=== PATIENT | female | born 1955 | race Caucasian/White ===

== ENCOUNTER 2017-08-18 11:32 | Emergency (ER) | payer BC ==
--- NOTE | 2017-08-18 12:22 | RAD ---
HISTORY: Chest pain COMPARISONS: March 13, 2006 VIEWS: 1: frontal portable view of the chest at 11:55 AM FINDINGS: LINES AND TUBES: None. CARDIOMEDIASTINAL SILHOUETTE: The cardiomediastinal silhouette is normal for portable technique. PLEURA: The costophrenic angles are sharp. No pleural abnormalities are noted. LUNG PARENCHYMA: There is hyperinflation. There is linear opacification of the left lung base ABDOMEN: The upper abdomen is clear. There is no subphrenic gas. BONES AND SOFT TISSUES: No bone or soft tissue abnormalities are noted. IMPRESSION: COPD. LINEAR ATELECTASIS OF THE LEFT LUNG BASE
[2017-08-18 13:32] LABS: Albumin 4.1 g/dL (3.2-5.2); BUN/Creatinine Ratio 12.5 (8-20); EGFR African American 84.3 (>60); EGFR Non-African American 65.5 (>60); Globulin 3.6 g/dL (2-4); Potassium 4.2 mmol/L (3.5-5.0); Total Bilirubin 0.4 mg/dL (0.2-1.0); Total Protein 7.7 g/dL (6.4-8.9)
[2017-08-18 13:34] LABS: Urine Bacteria Absent (Absent); Urine Bilirubin Negative (Negative); Urine Glucose Negative (Negative); Urine Nitrite Negative (Negative)
[2017-08-18 13:36] LABS: Hematocrit 49 % (35-47); Hemoglobin 16.5 g/dl (12.0-16.0); Mean Corpuscular HGB Conc 34 g/dl (31-36); Mean Corpuscular Hemoglobin 29 pg (27-31); Mean Corpuscular Volume 86 fL (80-97); Mean Platelet Volume 9 um3 (7.4-10.4); Red Blood Count 5.61 10^6/ul (4.0-5.4); Red Cell Distribution Width 14 % (10.5-15)
[2017-08-18] MEDS ORDERED: Albuterol/Ipratropium NEB.SOL* Albuterol 2.5 MG/Ipratropium 0.5 MG 3 ML INH ONE ×2 (13:48→14:48)
[2017-08-18] MEDS ORDERED: methylPREDNISolone 125 MG* 2 ML VIAL IV ONE (13:48)
[2017-08-18] MEDS ORDERED: Iohexol 350* (CONTRAST) 500 ML MDV IV ONE (14:16)
--- NOTE | 2017-08-18 14:36 | RAD ---
HISTORY: Shortness of breath, hypoxemia COMPARISONS: None TECHNIQUE: Multiple contiguous axial CT scans of the chest were obtained after the administration of nonionic intravenous contrast, timed to the pulmonary arterial phase of contrast enhancement.. Coronal and sagittal multiplanar reformations are also submitted for review. FINDINGS: NECK AND THYROID: The lower neck and thyroid are unremarkable. CHEST WALL: There is no lower cervical, axillary, or supraclavicular lymphadenopathy by size criteria. HEART AND PERICARDIUM: The heart is unremarkable. AORTA AND PULMONARY VASCULATURE: There is no pulmonary arterial filling defect to suggest pulmonary embolism. There is no linear filling defect within the aorta to suggest aortic dissection. MEDIASTINUM: There is an AP window lymph node measuring 1.3 cm in short axis. There is right hilar lymph node measuring 1 cm in short axis. JESUS MANUEL: There is no hilar lymphadenopathy by size criteria. AIRWAY AND ESOPHAGUS: There is peribronchovascular thickening diffusely LUNG PARENCHYMA: There is centrilobular emphysematous change. There is a 0.6 cm nodule of the superior segment of the right lower lobe on axial image 28 PLEURA: No pleural abnormalities are noted. UPPER ABDOMEN: The upper abdomen is unremarkable. BONES AND SOFT TISSUES: Degenerative changes are noted OTHER: None. IMPRESSION: 1. NO PULMONARY ARTERIAL FILLING DEFECT TO SUGGEST PULMONARY EMBOLISM. 2. EMPHYSEMA. 3. PERIBRONCHOVASCULAR THICKENING SUGGESTIVE OF BRONCHITIS OF UNCERTAIN ACUITY 4. MILDLY ENLARGED ADJACENT LYMPH NODES WITH BORDERLINE ENLARGED HILAR LYMPH NODES. 5. 0.6 CM NODULE OF THE RIGHT LOWER LOBE. THE RECOMMENDATIONS FOR FOLLOWUP AND MANAGEMENT OF AN INCIDENTALLY DETECTED PULMONARY NODULE LESS THAN 6 MM IN SIZE, IN A PATIENT WITHOUT A HISTORY OF MALIGNANCY, INCLUDE NO FOLLOWUP FOR A LOW-RISK PATIENT OR OPTIONAL FOLLOWUP CT IN 12 MONTHS FOR A HIGH RISK PATIENT. NOTES: SIZE = AVERAGE LENGTH AND WIDTH; HIGH RISK IS DEFINED A HISTORY OF SMOKING OR OTHER KNOW RISK FACTORS FOR LUNG CANCER; LOW RISK IS DEFINED MINIMAL OR ABSENT HISTORY OF SMOKING OR OTHER KNOWN RISK FACTORS. Reji Hawkins, GELY Cooper, ZOEY Alanis, et al (2017) "Guidelines for Management of Incidental Pulmonary Nodules Detected on CT Images: From the Fleischner Society 2017." Radiology; 284(1): 228-243. doi:10.1148/radiol.[id number] 1.
[2017-08-18] MEDS ORDERED: Nicotine Inhaler* 10 MG AMP INH ONE (16:36)
[2017-08-18 16:43] VITALS: BP 145/64
--- NOTE | 2017-08-23 13:12 | ED ---
Jenae Nino Edward, scribed for Juan Mckee MD on 08/18/17 at 1242 . Respiratory - HPI Summary HPI Summary: 62 y/o female presents to the ED c/o cough and SOB starting one week ago described as COPD exacerbation, worsening throughout the week. Pt reports more chest heaviness, coughing, fatigue and weakness than usual COPD exacerbation. Pt also c/o CP described as a constant pressure that is located under the breasts bilaterally, rated 6-7/10. It is alleviated when she lays down. Pt was dx PNA at [facility] six days ago; pt was put on an albuterol inhaler that alleviated symptoms slightly. The cough is a productive, clear cough. Associated sx: mild edema in the hands, back pain below the shoulder blades. Pt denies pain/swelling in the legs. Smoker. PMHx COPD. - History of Current Complaint Chief Complaint: EDUpperRespComplaint Stated Complaint: DIFF BREATHING/HEART RACING Hx Obtained From: Patient Onset/Duration: Lasting Days Pain Intensity: 4 Character: Cough (Productive), Dyspnea at Rest Sputum Color: Clear Alleviating Factor(s): Other - Recumbent position Associated Signs and Symptoms: SOB, Chest Pain, Edema - Hands - Allergy/Home Medications Allergies/Adverse Reactions: Allergies Allergy/AdvReac Type Severity Reaction Status Date / Time No Known Allergies Allergy Verified 08/18/17 11:36 PMH/Surg Hx/FS Hx/Imm Hx Previously Healthy: No Endocrine/Hematology History: Denies: Hx Diabetes Respiratory History: Reports: Hx Chronic Obstructive Pulmonary Disease (COPD), Other Respiratory Problems/Disorders - Cancer History Hx Chemotherapy: No Hx Radiation Therapy: No Infectious Disease History: No Infectious Disease History: Denies: Traveled Outside the [place] in Last 30 Days - Family History Known Family History: Positive: Cardiac Disease - Father: CAD, Diabetes - Father - Social History Alcohol Use: Rare Hx Substance Use: No Substance Use Type: Reports: None Hx Tobacco Use: Yes Smoking Status (MU): Heavy Every Day Tobacco Smoker Review of Systems Positive: Fatigue. Negative: Fever, Chills Negative: Erythema Negative: Sore Throat Positive: Chest Pain Positive: Shortness Of Breath, Cough Negative: Abdominal Pain, Vomiting, Nausea Negative: dysuria, hematuria Positive: Myalgia - Back pain , Edema - Hands. No edema in the legs Negative: Rash Neurological: Other - No dizziness Positive: Weakness All Other Systems Reviewed And Are Negative: Yes Physical Exam - Summary Physical Exam Summary: Constitutional: Well-developed, Well-nourished, Alert. (-) Distressed Skin: Warm, Dry HENT: Normocephalic; Atraumatic Eyes: Conjunctiva normal Neck: Musculoskeletal ROM normal neck. (-) JVD, (-) Stridor, (-) Tracheal deviation Cardio: Rhythm regular, rate normal, Heart sounds normal; Intact distal pulses; The pedal pulses are 2+ and symmetric. Radial pulses are 2+ and symmetric. (-) Murmur Pulmonary/Chest wall: Effort normal. (-) Respiratory distress, (+) Expiratory wheezes, (-) Rales. Hoarse voice Abd: Soft, (-) Tenderness, (-) Distension, (-) Guarding, (-) Rebound Musculoskeletal: (-) Edema Lymph: (-) Cervical adenopathy Neuro: Alert, Oriented x3 Psych: Mood and affect Normal Triage Information Reviewed: Yes Vital Signs On Initial Exam: Initial Vitals Temp Pulse Resp BP Pulse Ox 98.0 F 90 16 160/80 97 08/18/17 11:32 08/18/17 11:32 08/18/17 11:32 08/18/17 11:32 08/18/17 11:32 Vital Signs Reviewed: Yes - Gayle Coma Scale Coma Scale Total: 15 Diagnostics - Vital Signs Vital Signs Temp Pulse Resp BP Pulse Ox 08/18/17 12:14 86 92 08/18/17 12:12 156/73 08/18/17 12:09 94 08/18/17 11:32 98.0 F 90 16 160/80 97 - Laboratory Result Diagrams: 08/18/17 13:07 08/18/17 13:07 Lab Statement: Any lab studies that have been ordered have been reviewed, and results considered in the medical decision making process. - Radiology CXR Xray Interpretation: Positive (See Comments) - COPD. LINEAR ATELECTASIS OF THE LEFT LUNG BASE Radiology Interpretation Completed By: Radiologist - CT CHEST/THORAX CTA CT Interpretation: Positive (See Comments) - 1. NO PULMONARY ARTERIAL FILLING DEFECT TO SUGGEST PULMONARY EMBOLISM. 2. EMPHYSEMA. 3. PERIBRONCHOVASCULAR THICKENING SUGGESTIVE OF BRONCHITIS OF UNCERTAIN ACUITY 4. MILDLY ENLARGED ADJACENT LYMPH NODES WITH BORDERLINE ENLARGED HILAR LYMPH NODES. 5. 0.6 CM NODULE OF THE RIGHT LOWER LOBE. THE RECOMMENDATIONS FOR FOLLOWUP AND MANAGEMENT OF AN INCIDENTALLY DETECTED PULMONARY NODULE LESS THAN 6 MM IN SIZE, IN A PATIENT WITHOUT A HISTORY OF MALIGNANCY, INCLUDE NO FOLLOWUP FOR A LOW-RISK PATIENT OR OPTIONAL FOLLOWUP CT IN 12 MONTHS FOR A HIGH RISK PATIENT. CT Interpretation Completed By: Radiologist - EKG 1 EKG Interpretation: 13:42 - SR @ 81 BPM. NO STEMI. NO ECTOPY. Re-Evaluation - Re-Evaluation 1 Re-Evaluation Time: 15:15 Change: Improved - No SOB with ambulation. O2 sat between 88-92%. Pt felt much better after nebulizer and steroids. Disposition - Course Assessment/Plan: 62 y/o female presents to the ED c/o cough and SOB starting one week ago described as COPD exacerbation, worsening throughout the week. Pt reports more chest heaviness, coughing, fatigue and weakness than usual COPD exacerbation. Pt also c/o CP described as a constant pressure that is located under the breasts bilaterally, rated 6-7/10. It is alleviated when she lays down. Pt was dx PNA at [facility] six days ago; pt was put on an albuterol inhaler that alleviated symptoms slightly. The cough is a productive, clear cough. Associated sx: mild edema in the hands, back pain below the shoulder blades. Pt denies pain/swelling in the legs. Smoker. PMHx COPD. CXR SHOWS COPD. LINEAR ATELECTASIS OF THE LEFT LUNG BASE. CHEST/THORAX CTA SHOWS 1. NO PULMONARY ARTERIAL FILLING DEFECT TO SUGGEST PULMONARY EMBOLISM. 2. EMPHYSEMA. 3. PERIBRONCHOVASCULAR THICKENING SUGGESTIVE OF BRONCHITIS OF UNCERTAIN ACUITY 4. MILDLY ENLARGED ADJACENT LYMPH NODES WITH BORDERLINE ENLARGED HILAR LYMPH NODES. 5. 0.6 CM NODULE OF THE RIGHT LOWER LOBE. THE RECOMMENDATIONS FOR FOLLOWUP AND MANAGEMENT OF AN INCIDENTALLY DETECTED PULMONARY NODULE LESS THAN 6 MM IN SIZE, IN A PATIENT WITHOUT A HISTORY OF MALIGNANCY, INCLUDE NO FOLLOWUP FOR A LOW-RISK PATIENT OR OPTIONAL FOLLOWUP CT IN 12 MONTHS FOR A HIGH RISK PATIENT. EKG @ 13:42 - SR @ 81 BPM. NO STEMI. NO ECTOPY. On first re-eval, pt reports no SOB with ambulation. O2 sat between 88-92%. Pt felt much better after nebulizer and steroids. First troponin 0.00. Second trop 0.01. Pt will be d/c home with f/u with cardiology (Dr. Willams) in 3-5 days. - Diagnoses Provider Diagnoses: COPD exacerbation, Hypoxia, Chest pressure Discharge - Discharge Plan Condition: Stable Disposition: HOME Prescriptions: Albuterol HFA INHALER* [Ventolin HFA Inhaler*] 1 - 2 puff INH Q4H PRN #1 mdi PRN Reason: Cough DOXYcycline CAP(*) [DOXYcycline 100MG CAP(*)] 100 mg PO BID #14 cap predniSONE TAB* [Deltasone TAB*] 40 mg PO DAILY #5 tab Patient Education Materials: Hypoxia (ED), COPD (Chronic Obstructive Pulmonary Disease) (ED) Referrals: [facility] [place] PHYSICIAN REFERRAL [Outside] Kyrie Willams MD [Medical Doctor] - 5 Days (PLEASE F/U IN 3-5 DAYS) The documentation as recorded by the Jenae candelaria Edward accurately reflects the service I personally performed and the decisions made by Rafi elizabeth Jerry, MD.
== END 2017-08-18 16:56 | disposition home or self-care (01) ==
LOC: ED 11:32
DX: J44.1 Chronic obstructive pulmonary disease with (acute) exacerbation (principal); R07.89 Other chest pain; R09.02 Hypoxemia; Z72.0 Tobacco use; J43.9 Emphysema, unspecified; R91.1 Solitary pulmonary nodule; J98.11 Atelectasis
CPT/HCPCS: 36415; 71010; 71275; 80053; 81003; 81015; 83605; 84484; 85025; 85610; 85730; 87040; 93005; 94640; 96374; 96375; 99283; A9270-GY; J2930; Q9967